=== PATIENT | female | born 1990 | race Caucasian/White ===

== ENCOUNTER 2019-02-15 09:29 | Emergency (ER) | payer SELFPAY ==
[~2019-02-15] VITALS: Ht 170.2 cm; Wt 86.0 kg
[2019-02-15] MEDS ORDERED: acetaminophen 325mg tablet PO ONE (11:30)
[2019-02-15 11:40] VITALS: BP 139/84
== END 2019-02-15 11:42 | disposition home or self-care (01) ==
LOC: ER 09:30
DX: S82.54XA Nondisplaced fracture of medial malleolus of right tibia, initial encounter for closed fracture (principal); X50.1XXA Overexertion from prolonged static or awkward postures, initial encounter; Y93.89 Activity, other specified; Y92.89 Other specified places as the place of occurrence of the external cause; Y99.9 Unspecified external cause status
CPT/HCPCS: 73610; 99284

== ENCOUNTER 2022-09-10 06:10 | Emergency (ER) | payer MEDICAID ==
[~2022-09-10] VITALS: Ht 162.6 cm; Wt 72.7 kg
[2022-09-10 10:10] VITALS: BP 152/97
[2022-09-10] MEDS ORDERED: LISI5TAB22 PO (10:12)
[2022-09-10] MEDS ORDERED: NALO4SPR BOTHNARES (10:13)
== END 2022-09-10 10:25 | disposition home or self-care (01) ==
LOC: ER 06:12
DX: T40.411A Poisoning by fentanyl or fentanyl analogs, accidental (unintentional), initial encounter (principal); F17.200 Nicotine dependence, unspecified, uncomplicated; Y92.89 Other specified places as the place of occurrence of the external cause
CPT/HCPCS: 99283